=== PATIENT | male | born 1965 | race Caucasian/White ===

== ENCOUNTER 2017-02-05 11:54 | Emergency (ER) | payer OTHER ==
--- NOTE | 2017-02-05 12:22 | Emergency Department Record ---
History of Present Illness - General Chief Complaint: Abdominal Pain Stated Complaint: RIGHT SIDED PAIN Time Seen by Provider: 02/05/17 12:20 Source: Patient Mode of Arrival: Ambulatory Limitations: No limitations - History of Present Illness Initial Comments: The patient is here due to a 5 day hx of progressively increasing abdominal fullness and discomfort and bloating. There is mild pain after eating at times. The patient also states he is having some sharp RLQ pain at times and it intermittently radiates to the pelvis and back area. He denies any fever, dysuria, nausea, vomiting, or constipation. The patient states he has no hx of similar issues and his only abdominal surgery is having his GB removed. MD Complaint: Abdominal pain Onset/Timin -: Days(s) Location: RLQ Radiation: Back Severity: Moderate Quality: Fullness, Sharp Consistency: Constant, Intermittent Worsens With: Eating - Related Data Home Medications Medication Instructions Recorded Confirmed Last Taken Alprazolam [Alprazolam] 0.5 mg PO TID 02/05/17 02/05/17 02/05/17 Aspirin [Adult Low Dose Aspirin EC] 81 mg PO DAILY 02/05/17 02/05/17 02/05/17 Fluoxetine HCl [Prozac] 20 mg PO DAILY 02/05/17 02/05/17 02/05/17 Fluticasone Propionate [Flonase] 2 spray EACH NARES DAILY 02/05/17 02/05/17 Unknown Lansoprazole [Lansoprazole] 30 mg PO DAILY 02/05/17 02/05/17 02/05/17 Allergies Allergy/AdvReac Type Severity Reaction Status Date / Time atorvastatin calcium AdvReac BODY ACHES Verified 02/05/17 12:03 [From Lipitor] morphine AdvReac VOMITING Verified 02/05/17 12:03 Travel Screening - Travel/Exposure Within Last 30 Days Have you traveled within the last 30 days?: No - Travel/Exposure Within Last Year Have you traveled outside the [place] in the last year?: No - Additonal Travel Details Have you been exposed to anyone with a communicable illness?: No - Travel Symptoms Symptom Screening: None Review of Systems Constitutional: Denies: Chills, Fever Eyes: Denies: Eye discharge ENT: Denies: Congestion Respiratory: Denies: Cough, Dyspnea Past Medical History - SOCIAL HISTORY Smoking Status: Current every day smoker Alcohol Use: Occassional Drug Use: None - RESPIRATORY Hx Respiratory Disorders: No - CARDIOVASCULAR Hx Cardio Disorders: Yes Hx Cardiac Cath: Yes (stent placed) - NEURO Hx Neuro Disorders: No - GI Hx GI Disorders: Yes Hx Reflux: Yes - Hx Genitourinary Disorders: No - ENDOCRINE Hx Endocrine Disorders: No - MUSCULOSKELETAL Hx Musculoskeletal Disorders: Yes - PSYCH Hx Psych Problems: Yes Hx Anxiety: Yes Hx Depression: Yes - HEMATOLOGY/ONCOLOGY Hx Hematology/Oncology Disorders: No Family Medical History Any Significant Family History?: Yes Hx Diabetes: Father, Mother Hx Heart Disease: Father, Mother, Grandparents Physical Exam - General General Appearance: Alert, Oriented x3, Cooperative, No acute distress - Head Head exam: Atraumatic, Normocephalic, Normal inspection - Eye Eye exam: Normal appearance, PERRL - Neck Neck exam: Normal inspection, Full ROM. negative: Tenderness - Respiratory Respiratory exam: Normal lung sounds bilaterally. negative: Respiratory distress - Cardiovascular Cardiovascular Exam: Regular rate, Normal rhythm, Normal heart sounds - GI/Abdominal GI/Abdominal exam: Soft, Distended, Tenderness (There is mild vague lower abdominal tenderness bilaterally.). negative: Rebound, Rigid - Rectal Rectal exam: Deferred - exam: Circumcision, Normal inspection. negative: Scrotal swelling, Testicular tenderness - Extremities Extremities exam: Normal inspection, Full ROM, Normal capillary refill. negative: Tenderness Course Vital Signs 02/05/17 12:07 Temperature 97.8 F Pulse Rate 77 Respiratory 18 Rate Blood Pressure 141/96 Pulse Ox 98 - Reevaluation(s) Reevaluation #1: The patient is doing well. He denies any new issues or pain or fever. We are waiting on the CT. 02/05/17 13:28 Reevaluation #2: The patient is doing very well. I did discuss the normal lab tests and CT. He has an appointment with his PCP for later this week and is encouraged to keep it. 02/05/17 15:02 Medical Decision Making - Data Complexity MDM Data: Labs Ordered and/or Reviewed, X-Ray Ordered and/or Reviewed - Lab Data Result diagrams: 02/05/17 12:35 02/05/17 12:35 - Radiology Data Radiology results: Report reviewed (CT: No acute intraabdominal process.) Disposition Disposition: Discharge Clinical Impression: Abdominal bloating Disposition: Home, Self-Care Condition: (1) Good Instructions: Gas and Bloating (ED) Additional Instructions: Please continue your regular medicines and keep your appointment with your PCP for Wed. Please bring a written dictated copy from Radiology to the appointment. Return to the ER for any worsening bloating, pain or fever. Forms: Patient Portal Access Time of Disposition: 15:00
[2017-02-05] MEDS ORDERED: 0.9 % SODIUM CHLORIDE 1,000 ML BAG IV ONE (12:27)
[2017-02-05 12:46] LABS: EOS % 2.9 % (0-6); GRAN % 54.1 % (47-80); HEMATOCRIT 47.5 % (42.0-52.0); HEMOGLOBIN 16.4 gm/dl (14.0-18.0); LYMPH % 32.9 % (16-45); MEAN CELL VOLUME 93.1 fl (81-97); MEAN CORPUSCULAR HEMOGLOBIN 32.2 pg (27-33); MEAN CORPUSCULAR HGB CONC 34.5 g/dl (32-36); MEAN PLATELET VOLUME 10.6 fl (7.4-10.4); MONO % 9.1 % (0-9); PLATELET COUNT 285 K/uL (130-400); RED CELL DISTRIBUTION WIDTH 13.7 % (11.5-14.5); WHITE BLOOD COUNT W/O DIFF 8.9 K/uL (4.2-12.2)
[2017-02-05 12:47] LABS: URINE APPEARANCE CLEAR; URINE BILIRUBIN NEGATIVE (NEGATIVE); URINE BLOOD NEGATIVE (NEGATIVE); URINE COLOR YELLOW; URINE GLUCOSE (UA) NEGATIVE (NEGATIVE); URINE KETONE NEGATIVE (NEGATIVE); URINE LEUKOCYTE ESTERASE NEGATIVE (NEGATIVE); URINE NITRITE NEGATIVE (NEGATIVE); URINE PROTEIN NEGATIVE (NEGATIVE); URINE UROBILINOGEN 0.2 E.U./dL (0.20 - 1.00)
[2017-02-05 12:59] LABS: ALBUMIN 4.6 gm/dL (3.5-5.0); ALKALINE PHOSPHATASE 103 U/L (38-126); ALT/SGPT 46 U/L (21-72); ANION GAP 10.8 (7-16); AST/SGOT 29 U/L (17-59); BILIRUBIN,TOTAL 0.47 mg/dL (0.2-1.3); BLOOD UREA NITROGEN 12 mg/dL (9-20); CARBON DIOXIDE 26.2 mmol/L (22-30); CREATININE 1.1 mg/dL (0.66-1.25); EST GLOMERULAR FILTRATION RATE > 60 ml/min; GLUCOSE,RANDOM 87 mg/dL (70-110); LIPASE 88 U/L (23-300); TOTAL PROTEIN 7.8 gm/dL (6.3-8.2)
== END 2017-02-05 15:08 | disposition home or self-care (01) ==
LOC: ER 11:54
DX: R14.0 Abdominal distension (gaseous) (principal); R10.31 Right lower quadrant pain
CPT/HCPCS: 99283 ×2; 83690; 85025; 80076; 80048; 81003; 74177; Q9967; J7030